=== PATIENT | male | born 2000 | race African-American/Black ===

== ENCOUNTER 2024-02-19 17:22 | Emergency (ER) | payer SELFPAY ==
[2024-02-19 17:24] VITALS: BP 176/120; PULSE 113; RESP 18; TEMP 36.2; O2SAT 98
--- NOTE | 2024-02-19 18:22 | RAD_ITS ---
STUDY: X-RAY - LEFT ANKLE REASON FOR EXAM: Male, 23 years old. pain, unable to bear weight TECHNIQUE: 3 view(s) of the ankle. COMPARISON: None. FINDINGS: Normal visualized distal tibia and fibula. Normal medial and lateral malleoli. Normal tibiotalar articulation and ankle mortise. Normal visualized talus and calcaneus. The visualized subtalar, talonavicular, calcaneocuboid and tarsal articulations are normal. Mild bimalleolar soft tissue swelling. RAD/Ankle min 3 Views IMPRESSION: Mild bimalleolar sprain. No acute fracture or dislocation Electronically Signed: Edwin Lui MD at 19:00 EST ,
[2024-02-19 20:10] VITALS: BMI 43.4
--- NOTE | 2024-02-19 21:02 | ED.VIS.LOWEX ---
HPI History of Present Illness HPI Narrative: Patient presents with left ankle injury that occurred today. Patient states he inverted his ankle. Patient describes the pain as aching. Patient states it is worse with any weightbearing or movement. Patient admits to some tingling. Patient denies any weakness. Patient states nothing seems to help with the pain. Patient denies any head injury or loss of consciousness. Patient denies any other injuries. Chief Complaint: Lower Extremity Injury Informant: patient Occured/Mechanism Comment: Inversion injury Onset/Context/Timing Onset: Today Context: Sudden Onset Timing: Continuous Quality of Pain: Aching Location: Left ankle Worsened by: Weightbearing Relieved by: Nothing Associated Symptoms Associated Symptoms: Positive for Parasthesia PFSH PFSH Medical History no medical history Home Medications ?Medication ?Instructions ?Recorded ?Last Taken ?Type NK 02/19/24 Unknown History Allergy/AdvReac Type Severity Reaction Status Date / Time No Known Allergies Allergy Verified 02/19/24 17:24 Family History no significant family his Surgical History (Updated 02/19/24 @ 21:[address] Fan Nova DO) Hx of arthroscopy of shoulder Hx of arthroscopic knee surgery Surgical History no surgical history Social History Smoking Status: Current every day smoker tobacco type: e-cigarettes ROS ROS ED Constitutional Constitutional ED: Denies chills or fever(s) Eyes Eyes: Denies blurry vision or change in vision ENT ENT ED: Denies rhinorrhea or sore throat Cardiovascular Cardiovascular: Denies chest pain or palpitations Respiratory/Chest Respiratory/Chest: Denies cough or dyspnea Gastrointestinal Gastrointestinal: Denies nausea or vomiting Genitourinary Genitourinary ED: Denies dysuria or hematuria Musculoskeletal Musculoskeletal: Denies back pain or neck pain Integumentary Denies abscess or rash Neurologic Neurologic: Denies headache(s) or weakness Allergic/Immunologic Allergic/Immunologic ED: Denies mouth swelling or urticaria EXAM Physical Exam Const Vital Signs: 02/19/24 17:24 Temperature 97.1 F L Temperature Source Temporal Pulse Rate 113 H Respiratory Rate 18 Blood Pressure 176/120 H Blood Pressure Mean 138 Pulse Ox 98 Oxygen Delivery Method Room Air Positive well nourished and well developed General Appearance ED: well developed and NAD HEENT Reports moist mucous membranes Neck full ROM and supple Extremity Extremity Narrative: There is tenderness over the medial and lateral malleoli of the left ankle. There is no tenderness over the proximal fibula. There is no tenderness over the fifth metatarsal. Range of motion of the left ankle was limited in all motions secondary to pain. Sensation was intact to light touch in all digits. Capillary refill was less than 2 seconds in all digits. Pedal pulses are equal bilaterally. Neuro oriented x3, CN's II-XII intact bilaterally, moves all extremities and no sensory deficits noted Sensorium / Orientation: alert Motor Exam: strength 5/5 throughout Psych mental status grossly normal MDM MDM MDM Narrative Medical decision making narrative: Differential diagnosis includes fracture, sprain, and contusion. X-rays of the left ankle will be obtained to assess for fracture. Radiography Diagnostic Testing: Clinical Impression(s) from Imaging Studies Ankle X-Ray 02/19/24 18:22 IMPRESSION: Mild bimalleolar sprain. No acute fracture or dislocation Electronically Signed: Edwin Lui MD at 19:00 EST Reading Location ID and State: [address] [place] [address] Tel , Service support , X-rays of the left ankle were obtained. There are 3 views. On my independent interpretation, there is no acute fracture. There is no dislocation. There is some mild soft tissue swelling. Radiologist also interpreted the x-rays and agrees. Treatment and Re-Evaluation Narrative: Nicotine cessation was discussed with his findings are noted. Patient was given crutches. Patient was instructed to ice and elevate the left ankle. Patient was given an Aircast. Patient was instructed to ibuprofen or Tylenol as needed for pain. Patient was instructed to follow-up with his primary care physician in 5 to 7 days. Patient understood and was agreeable with the plan. All questions were answered. Discharge Plan Triage Chief Complaint: Lower Extremity Injury ED Provider: Fan Nova Dx/Rx/DC Orders Clinical Impression: Left ankle sprain, Nicotine use Instructions: ED Ankle Sprain (Adult) Prescriptions: No Action NK Primary Care Provider: Care Physician,No Primary Referrals: Care Physician,No Primary [Primary Care Provider] - Santosh Hansen, MEDICAL SCREENER-C [[facility]] - 5-7 Days Print Language: Nigerien Disposition Disposition: Home, Self Care
[2024-02-19 21:19] VITALS: BP 153/94; PULSE 95; RESP 18; TEMP 36.7; O2SAT 97
== END 2024-02-19 21:22 | disposition home or self-care (01) ==
PROVIDERS: Emergency Provider Emergency Medicine; Visit Provider Emergency Medicine
DX: S93.402A Sprain of unspecified ligament of left ankle, initial encounter (principal); F17.290 Nicotine dependence, other tobacco product, uncomplicated; X58.XXXA Exposure to other specified factors, initial encounter
CPT/HCPCS: 73610; 99284